=== PATIENT | male | born 1950 | race Caucasian/White ===

== ENCOUNTER 2016-09-15 19:35 | Emergency (ER) | payer MEDICARE, MEDICAID ==
[2016-09-15 20:10] VITALS: BP 132/69; PULSE 74; RESP 20; TEMP 97.9; O2SAT 97
[2016-09-15] MEDS ORDERED: OXYC1CAP PO (20:14)
[2016-09-15] MEDS ORDERED: ANTIVIRAL (20:14)
[2016-09-15] MEDS ORDERED: TACR1CAP PO (20:30)
--- NOTE | 2016-09-15 21:14 | PD ---
HPI Chief Complaint: An/Syq 13 Nav/C2 Operator Problem Time Seen by Provider: 21:10 Travel History International Travel<30 days: No Contact w/Intl Traveler<30days: No Traveled to known affect area: No History of Present Illness HPI The patient is a 65-year-old male who has a history of bone cancer and has a PowerPort in his right anterior chest. He states he is not flushed this and 7 weeks and the usual routine is to have a flushed every 4 weeks. He states the reason he is not had a flushed is because he has been unable to get over to see his physician in [place]. He promises he is going to see his physician in [place]. A review of his systems reveals he has not come in before to [facility] system for the same reason. He is not having any problems with his port. PFSH Past Medical History Cancer: Yes (BONE) Past Surgical History Other Surgery: Yes (LIVER TRANSPLANT, WRIST FX) Social History Alcohol Use: No Tobacco Use: No Substance Use: No Allergies-Medications (Allergen,Severity, Reaction): Coded Allergies: Aspirin (Verified Allergy, Unknown, 09/15/16) Codeine (Verified Allergy, Unknown, 09/15/16) Ibuprofen (Verified Allergy, Unknown, 09/15/16) Sulfa (Verified Allergy, Unknown, 09/15/16) Reported Meds & Prescriptions Reported Meds & Active Scripts Active Reported Tacrolimus 1 Mg Cap 1 Mg PO Q12H Oxycodone (Oxycodone HCl) 5 Mg Cap Unknown Dose PO Q4H PRN Review of Systems Except as stated in HPI: all other systems reviewed are Neg Physical Exam Narrative GENERAL: Well-nourished, well-developed patient in no apparent distress. He appears generally thin. His vital signs are normal. SKIN: Warm and dry. No erythema or abscess is present on the skin. HEAD: Normocephalic. EYES: No scleral icterus. No injection or drainage. NECK: Supple, trachea midline. No JVD or lymphadenopathy. CARDIOVASCULAR: Regular rate and rhythm without murmurs, gallops, or rubs. RESPIRATORY: Breath sounds equal bilaterally. No accessory muscle use. GASTROINTESTINAL: Abdomen soft, non-tender, nondistended. MUSCULOSKELETAL: No cyanosis, or edema. BACK: Nontender without obvious deformity. No CVA tenderness. Data Data Last Documented VS Vital Signs Date Time Temp Pulse Resp B/P Pulse Ox O2 Delivery O2 Flow Rate FiO2 09/15/16 20:10 97.9 74 20 132/69 97 Orders Heparin Central Flush (Heparin Central F (09/15/16 21:15) MDM Medical Decision Making Medical Screen Exam Complete: Yes Emergency Medical Condition: Yes Medical Record Reviewed: Yes Differential Diagnosis Noncompliance to port flushing, problems with port flushing Narrative Course The patient appears to be simply noncompliant to getting his port flushed. He plans to see his physician in [place]. Diagnosis Primary Impression: Noncompliance Additional Instructions: As we discussed, you need to follow-up, hopefully in a few weeks, with your physician in [place]. We cannot give you adequate follow-up here in the emergency department. Med/Other Pt SpecificInfo: No Change to Meds Disposition: 01 DISCHARGE HOME Condition: Stable Mario Solorio MD Sep 15, 2016 21:14
== END 2016-09-15 22:50 | disposition home or self-care (01) ==
LOC: PHEFT 19:35
DX: Z91.19 Patient's noncompliance with other medical treatment and regimen (principal); Z95.828 Presence of other vascular implants and grafts
CPT/HCPCS: 99283; J1642

== ENCOUNTER 2017-04-24 14:16 | Emergency (ER) | payer MEDICARE ==
[~2017-04-24] VITALS: Ht 185.4 cm; Wt 58.7 kg
[~2017-04-24 14:16] MED LIST: OXYC1CAP PO; TACR1CAP PO
[2017-04-24] MEDS ORDERED: IOHEXOL 350 MG/ML 10 ML VIAL (for RAD DIAG) IVCONTRAST ONE ×2 (14:17)
[2017-04-24 14:21] VITALS: BP 109/56; PULSE 105; RESP 18; TEMP 99.3; O2SAT 98
[2017-04-24] MEDS ORDERED: CALC1TAB87 PO (14:59)
[2017-04-24] MEDS ORDERED: REGO40TA PO (14:59)
[2017-04-24] MEDS ORDERED: DAPS1TAB2 PO (14:59)
[2017-04-24] MEDS ORDERED: MS C15TA7 PO (14:59)
[2017-04-24] MEDS ORDERED: OXYC30TA PO (14:59)
[2017-04-24] MEDS ORDERED: RA BTAB PO (14:59)
[2017-04-24] MEDS ORDERED: CHOL10008 PO (14:59)
[2017-04-24] MEDS ORDERED: TAMS5CAP PO (14:59)
[2017-04-24] MEDS ORDERED: RANI150T PO (14:59)
[2017-04-24] MEDS ORDERED: SODIUM CHLORIDE 0.9% FLUSH 10 ML FLUSH IV FLUSH PRN (15:00)
--- NOTE | 2017-04-24 15:03 | PD ---
HPI Chief Complaint: Abdominal Pain Time Seen by Provider: 14:25 Travel History International Travel<30 days: No Contact w/Intl Traveler<30days: No Traveled to known affect area: No History of Present Illness HPI This patient complains of abdominal pain. Location is periumbilical. Duration is 2 weeks. Symptoms severity is moderate. No alleviating factors. Patient has history of metastatic cancer and is currently getting chemotherapy and has been through radiation. Has also had a liver transplant remotely. He takes immunosuppressants and heavy narcotics. No exacerbating factors. PFSH Past Medical History Cancer: Yes (BONE) Past Surgical History Other Surgery: Yes (LIVER TRANSPLANT, WRIST FX) Social History Alcohol Use: No Tobacco Use: No Substance Use: No Allergies-Medications (Allergen,Severity, Reaction): Coded Allergies: Sulfa (Sulfonamide Antibiotics) (Unverified Allergy, Unknown, RASH, ) aspirin (Unverified Allergy, Unknown, RASH, 04/24/17) codeine (Unverified Allergy, Unknown, GI UPSET, 04/24/17) ibuprofen (Unverified Allergy, Unknown, GI UPSET, 04/24/17) Reported Meds & Prescriptions Reported Meds & Active Scripts Active Reported Ms Contin (Morphine Sulfate) 15 Mg Tab 15 Mg PO Q12HR PRN Flomax (Tamsulosin HCl) 0.4 Mg Cap 0.4 Mg PO BID Dapsone 100 Mg Tab 100 Mg PO WEEKLY Vitamin D3 (Cholecalciferol) 1,000 Unit Cap 800 Units PO BID Stivarga (Regorafenib) 40 Mg Tablet 1 Tab PO DAILY Calcium 600 with Vitamin D (Calcium Carbonate-Cholecalciferol) 600-400 mg-Unit Tab 1 Tab PO BID Ranitidine (Ranitidine HCl) 150 Mg Tab 150 Mg PO HS B Complex (Vitamin B Complex) 1 Each Tablet 80 Mg PO DAILY Oxycodone (Oxycodone HCl) 30 Mg Tab 30 Mg PO Q6H Tacrolimus 1 Mg Cap 2 Mg PO Q12H Review of Systems General / Constitutional: No: Fever Eyes: No: Visual changes HENT: No: Headaches Cardiovascular: No: Chest Pain or Discomfort Respiratory: No: Shortness of Breath Gastrointestinal: Positive: Abdominal Pain, Constipation Genitourinary: No: Dysuria Musculoskeletal: Positive: Pain Skin: No Rash Neurologic: No: Weakness Psychiatric: No: Depression Endocrine: No: Polydipsia Hematologic/Lymphatic: No: Easy Bruising Physical Exam Narrative GENERAL: Thin well-developed patient in no apparent distress. SKIN: Focused skin assessment reveals no rash and nodules. Skin is Warm and dry. HEAD: Atraumatic. Normocephalic. EYES: Pupils equal and round. No scleral icterus. No injection or drainage. ENT: No nasal bleeding or discharge. Mucous membranes pink and moist. NECK: Trachea midline. No JVD. CARDIOVASCULAR: Regular rate and rhythm. No murmur appreciated. RESPIRATORY: No accessory muscle use. Clear to auscultation. Breath sounds equal bilaterally. GASTROINTESTINAL: Abdomen soft, mild. Umbilical tenderness without rebound or guarding. Well-healed surgical scar. nondistended. Splenic margin not palpable MUSCULOSKELETAL: Has a tender mass on the left side near the bottom of the rib cage. No clubbing. No cyanosis. No edema. NEUROLOGICAL: Awake and alert. No obvious cranial nerve deficits. Motor grossly within normal limits. Normal speech. PSYCHIATRIC: Appropriate mood and affect; insight and judgment normal. Data Data Last Documented VS Vital Signs Date Time Temp Pulse Resp B/P (MAP) Pulse Ox O2 Delivery O2 Flow Rate FiO2 04/24/17 15:09 18 04/24/17 14:21 99.3 105 109/56 (73) 98 Orders Orders Complete Blood Count With Diff (04/24/17 14:51) Comprehensive Metabolic Panel (04/24/17 14:51) Lipase (04/24/17 14:51) Prothrombin Time / Inr (Pt) (04/24/17 14:51) Act Partial Throm Time (Ptt) (04/24/17 14:51) Ct Abd/Pel W Iv Contrast(Rout) (04/24/17 14:51) Iv Access Insert/Monitor (04/24/17 14:51) NPO (04/24/17 14:51) Sodium Chloride 0.9% Flush (Ns Flush) (04/24/17 15:00) Labs Laboratory Tests Test 04/24/17 15:05 White Blood Count 5.4 TH/MM3 Red Blood Count 4.36 MIL/MM3 Hemoglobin 11.2 GM/DL Hematocrit 34.8 % Mean Corpuscular Volume 79.9 FL Mean Corpuscular Hemoglobin 25.8 PG Mean Corpuscular Hemoglobin Concent 32.2 % Red Cell Distribution Width 14.3 % Platelet Count 146 TH/MM3 Mean Platelet Volume 7.9 FL Neutrophils (%) (Auto) 81.4 % Lymphocytes (%) (Auto) 9.5 % Monocytes (%) (Auto) 8.6 % Eosinophils (%) (Auto) 0.2 % Basophils (%) (Auto) 0.3 % Neutrophils # (Auto) 4.4 TH/MM3 Lymphocytes # (Auto) 0.5 TH/MM3 Monocytes # (Auto) 0.5 TH/MM3 Eosinophils # (Auto) 0.0 TH/MM3 Basophils # (Auto) 0.0 TH/MM3 CBC Comment DIFF FINAL Differential Comment Sodium Level 136 MEQ/L Potassium Level 4.2 MEQ/L Chloride Level 101 MEQ/L MDM Medical Decision Making Medical Screen Exam Complete: Yes Emergency Medical Condition: Yes Medical Record Reviewed: Yes Differential Diagnosis Colitis, obstruction, ileus, hepatitis Narrative Course I have reviewed the patient's electronic medical record. Patient was seen here in the ER recently requesting a port flush. I reviewed his PET scan from 15 days ago showing metastatic disease IV placed I've ordered abdominal pain workup this complicated patient with metastatic bone cancer as well as liver transplant status having abdominal pain I've ordered lab studies and a CT of abdomen and pelvis Workup is pending at the time my shift ends. Case will be checked out to Dr. May to assist with disposition Kofi Craven MD Apr 24, 2017 15:03
[2017-04-24 15:27] LABS: AUTOMATED NEUTROPHIL # 4.4 TH/MM3 (1.8-7.7); BASOPHIL % 0.3 % (0.0-2.0); EOSINOPHIL % 0.2 % (0.0-4.0); HEMATOCRIT 34.8 % (39.0-51.0); HEMOGLOBIN 11.2 GM/DL (13.0-17.0); LYMPH % 9.5 % (9.0-44.0); LYMPHOCYTE # 0.5 TH/MM3 (1.0-4.8); MEAN CELL VOLUME 79.9 FL (80.0-100.0); MEAN CORPUSCULAR HEMOGLOBIN 25.8 PG (27.0-34.0); MEAN CORPUSCULAR HGB CONC 32.2 % (32.0-36.0); MEAN PLATELET VOLUME 7.9 FL (7.0-11.0); MONO % 8.6 % (0.0-8.0); MONOCYTE # 0.5 TH/MM3 (0-0.9); NEUT % 81.4 % (16.0-70.0); PLATELET COUNT 146 TH/MM3 (150-450); RED BLOOD COUNT 4.36 MIL/MM3 (4.50-5.90); RED CELL DISTRIBUTION WIDTH 14.3 % (11.6-17.2); WHITE BLOOD COUNT 5.4 TH/MM3 (4.0-11.0)
[2017-04-24 15:37] LABS: CHLORIDE 101 MEQ/L (98-107); SODIUM (NA) 136 MEQ/L (136-145)
[2017-04-24 15:40] LABS: CALCIUM 7.7 MG/DL (8.5-10.1)
[2017-04-24 15:41] LABS: ALBUMIN 3.1 GM/DL (3.4-5.0); BICARBONATE 29.7 MEQ/L (21.0-32.0); BLOOD UREA NITROGEN 15 MG/DL (7-18); GLUCOSE,RANDOM 103 MG/DL (74-106); LIPASE 69 U/L (73-393)
[2017-04-24 15:42] LABS: INTERNATIONAL NORMALIZED RATIO 1.1 RATIO; PROTHROMBIN TIME - PATIENT 11.8 SEC (9.8-11.6)
[2017-04-24 15:43] LABS: ALT (GPT) 31 U/L (12-78); AST (GOT) 27 U/L (15-37); CREATININE 0.99 MG/DL (0.60-1.30); GLOMERULAR FILTRATION RATE 76 ML/MIN (>89)
[2017-04-24 15:45] LABS: TOTAL BILIRUBIN ADULT 0.8 MG/DL (0.2-1.0); TOTAL PROTEIN 7.3 GM/DL (6.4-8.2)
[2017-04-24 15:46] LABS: ALKALINE PHOSPHATASE 75 U/L (45-117)
[2017-04-24] MEDS ORDERED: ACETAMINOPHEN/HYDROcodone 325 MG/5 MG TAB PO ONE (16:30)
--- NOTE | 2017-04-24 16:42 | RADRPT ---
EXAM DATE/TIME: 04/24/2017 15:58 [facility] COMPARISON: No previous studies available for comparison. INDICATIONS : Periumbilical pain. Chronic constipation. IV CONTRAST: 85 cc Omnipaque 350 (iohexol) IV ORAL CONTRAST: No oral contrast ingested. RADIATION DOSE: 5.37 CTDIvol (mGy) MEDICAL HISTORY : Metastatic, bone. Liver cancer. SURGICAL HISTORY : Liver transplant. ENCOUNTER: Initial ACUITY: 3 weeks PAIN SCALE: 8/10 LOCATION: Periumbilical. TECHNIQUE: Volumetric scanning of the abdomen and pelvis was performed. Using automated exposure control and ad justment of the mA and/or kV according to patient size, radiation dose was kept as low as reasonably achievable to obtain optimal diagnostic quality images. DICOM format image data is available electro nically for review and comparison. FINDINGS: LOWER LUNGS: The visualized lower lungs are clear. Small pericardial effusion anteriorly. LIVER: Multiple low density lesions scattered throughout the liver characteristic of benign cysts. Intra-and extrahepatic biliary ductal dilatation the CBD measuring about 1 cm in diameter at the pancreatic he ad. This may be related to prior cholecystectomy.. SPLEEN: Normal size without lesion. PANCREAS: Within normal limits. KIDNEYS: Normal in size and shape. There is no mass, stone or hydronephrosis. Multiple, benign-appearing dannielle l cortical cysts. ADRENAL GLANDS: 4.7 x 3.7 cm mass lesion in the left adrenal gland concerning for neoplastic process.. VASCULAR: There is no aortic aneurysm. BOWEL/MESENTERY: Stool throughout the colon characteristic of constipation. ABDOMINAL WALL: Within normal limits. RETROPERITONEUM: There is no lymphadenopathy. BLADDER: No wall thickening or mass. REPRODUCTIVE: Within normal limits. INGUINAL: There is no lymphadenopathy or hernia. MUSCULOSKELETAL: 4.6 x 3.5 cm mass lesion involving the lateral aspect of the left 10th rib at the costochondral junct ion. Lytic area in the upper sacrum shows features of chronicity with sharp, well corticated margins. CONCLUSION: 1. CT features in the abdomen concerning for neoplasm with a 4.6 x 3.5 cm mass lesion involving the c ostochondral junction of the lateral left 10th rib and a 4.7 x 3.7 cm mass lesion in the left adrenal gland. The rib lesion would be amenable to biopsy if clinically necessary. 2. 3.8 cm lytic area in the left side of the sacrum centrally appears to be well-corticated and is pr obably chronic. 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 3. Intra-and extrahepatic biliary ductal dilatation may be related to prior cholecystectomy. 4. Multiple hepatic and renal cysts. 5. Small pericardial effusion anteriorly. Sina Tellez MD on April 24, 2017 at 16:12 Board Certified Radiologist. This report was verified electronically.
[2017-04-24] MEDS ORDERED: ACETAMINOPHEN 500 MG CPLT PO ONE (16:45)
--- NOTE | 2017-04-24 16:46 | PD ---
Data Data Last Documented VS Vital Signs Date Time Temp Pulse Resp B/P (MAP) Pulse Ox O2 Delivery O2 Flow Rate FiO2 04/24/17 17:44 96 16 121/70 (87) 96 04/24/17 14:21 99.3 Orders Orders Complete Blood Count With Diff (04/24/17 14:51) Comprehensive Metabolic Panel (04/24/17 14:51) Lipase (04/24/17 14:51) Prothrombin Time / Inr (Pt) (04/24/17 14:51) Act Partial Throm Time (Ptt) (04/24/17 14:51) Ct Abd/Pel W Iv Contrast(Rout) (04/24/17 14:51) Iv Access Insert/Monitor (04/24/17 14:51) NPO (04/24/17 14:51) Sodium Chloride 0.9% Flush (Ns Flush) (04/24/17 15:00) Iohexol 350 Inj (Omnipaque 350 Inj) (04/24/17 14:17) Acetamin-Hydrocod 325-5 Mg ([place] 5-325 (04/24/17 16:30) Acetaminophen (Tylenol) (04/24/17 16:45) Ed Discharge Order (04/24/17 16:46) Ketorolac Inj (Toradol Inj) (04/24/17 17:00) Labs Laboratory Tests Test 04/24/17 15:05 White Blood Count 5.4 TH/MM3 Red Blood Count 4.36 MIL/MM3 Hemoglobin 11.2 GM/DL Hematocrit 34.8 % Mean Corpuscular Volume 79.9 FL Mean Corpuscular Hemoglobin 25.8 PG Mean Corpuscular Hemoglobin Concent 32.2 % Red Cell Distribution Width 14.3 % Platelet Count 146 TH/MM3 Mean Platelet Volume 7.9 FL Neutrophils (%) (Auto) 81.4 % Lymphocytes (%) (Auto) 9.5 % Monocytes (%) (Auto) 8.6 % Eosinophils (%) (Auto) 0.2 % Basophils (%) (Auto) 0.3 % Neutrophils # (Auto) 4.4 TH/MM3 Lymphocytes # (Auto) 0.5 TH/MM3 Monocytes # (Auto) 0.5 TH/MM3 Eosinophils # (Auto) 0.0 TH/MM3 Basophils # (Auto) 0.0 TH/MM3 CBC Comment DIFF FINAL Differential Comment Prothrombin Time 11.8 SEC Prothromb Time International Ratio 1.1 RATIO Activated Partial Thromboplast Time 30.8 SEC Blood Urea Nitrogen 15 MG/DL Creatinine 0.99 MG/DL Random Glucose 103 MG/DL Total Protein 7.3 GM/DL Albumin 3.1 GM/DL Calcium Level 7.7 MG/DL Alkaline Phosphatase 75 U/L Aspartate Amino Transf (AST/SGOT) 27 U/L Alanine Aminotransferase (ALT/SGPT) 31 U/L Total Bilirubin 0.8 MG/DL Sodium Level 136 MEQ/L Potassium Level 4.2 MEQ/L Chloride Level 101 MEQ/L Carbon Dioxide Level 29.7 MEQ/L Anion Gap 5 MEQ/L Estimat Glomerular Filtration Rate 76 ML/MIN Lipase 69 U/L [facility] Medical Record Reviewed: Yes Supervised Visit with LEE: No Narrative Course CBC & BMP Diagram 04/24/17 15:05 Total Protein 7.3, Albumin 3.1 L, Calcium Level 7.7 L, Alkaline Phosphatase 75, Aspartate Amino Transf (AST/SGOT) 27, Alanine Aminotransferase (ALT/SGPT) 31, Total Bilirubin 0.8 Last 24 hours Impressions Abdomen/Pelvis CT 04/24/17 1451 Signed Impressions: Service Date/Time: Monday, April 24, 2017 15:58 - CONCLUSION: 1. CT features in the abdomen concerning for neoplasm with a 4.6 x 3.5 cm mass lesion involving the costochondral junction of the lateral left 10th rib and a 4.7 x 3.7 cm mass lesion in the left adrenal gland. The rib lesion would be amenable to biopsy if clinically necessary. 2. 3.8 cm lytic area in the left side of the sacrum centrally appears to be well-corticated and is probably chronic. 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 3. Intra-and extrahepatic biliary ductal dilatation may be related to prior cholecystectomy. 4. Multiple hepatic and renal cysts. 5. Small pericardial effusion anteriorly. Sina Tellez MD The patient is resting comfortably and feels better, is alert and in no distress. The patients results and examination findings were discussed. The repeat examination is unremarkable and benign. The history, exam, diagnostic testing, and current condition do not suggest any significant pathology to warrant further testing, continued ED treatment, admission, or surgical evaluation at this point. The vital signs have been stable. The patient does not have uncontrollable pain, intractable vomiting, or other significant symptoms. The patient's condition is stable and appropriate for discharge. The patient will pursue further outpatient evaluation with a primary care physician or other designated or consulting physician as indicated in the discharge instructions. The patient expressed understanding and was agreeable with this plan. Diagnosis Primary Impression: Abdominal pain Qualified Codes: R10.12 - Left upper quadrant pain Additional Impression: Abdominal mass, left upper quadrant Referrals: Alberto Hill MD, Ruby Anne E MD Latif,Silverio Baker,Kari Cardenas MD Additional Instruction: You have a choice when it comes to health care, and we are glad that you chose [email or web address]. Hopefully, we have met your expectations on today's visit. You are welcome to return to [email or web address] at any time, as we are committed to meeting the health care needs of our community. Med/Other Pt SpecificInfo: No Change to Meds Disposition: 01 DISCHARGE HOME Condition: Stable Bola May MD Apr 24, 2017 16:46
[2017-04-24] MEDS ORDERED: LINA72CA PO (16:49)
[2017-04-24] MEDS ORDERED: KETOROLAC TROMETHAMINE 30 MG/ML (IVP) VIAL IV PUSH ONE (17:00)
[2017-04-24 17:44] VITALS: BP 121/70
== END 2017-04-24 17:45 | disposition home or self-care (01) ==
LOC: PHED 14:16
DX: R10.12 Left upper quadrant pain (principal); R19.02 Left upper quadrant abdominal swelling, mass and lump; C41.9 Malignant neoplasm of bone and articular cartilage, unspecified; C79.9 Secondary malignant neoplasm of unspecified site; Z94.4 Liver transplant status
CPT/HCPCS: 74177; 80053; 83690; 85025; 85610; 85730; 96374; 99285; J1885; Q9967